=== PATIENT | male | born 1960 | race Caucasian/White ===

== ENCOUNTER → 2018-02-12 | Outpatient (CLI) | payer BC | END | disposition home or self-care (01) | LOC: KCIC CT 09:07 | DX: Z12.2 Encounter for screening for malignant neoplasm of respiratory organs (principal); J43.8 Other emphysema; E78.5 Hyperlipidemia, unspecified; I25.10 Atherosclerotic heart disease of native coronary artery without angina pectoris; R91.8 Other nonspecific abnormal finding of lung field; Z87.891 Personal history of nicotine dependence | CPT/HCPCS: G0297 ==

== ENCOUNTER → 2018-05-21 | Outpatient (CLI) | payer BC ==
[2018-03-29 06:58] VITALS: BP 149/77
[~2018-05-21] MED LIST: CHOL10003 PO; CONTRAST GIVEN. MC PRN; CYAN500T17 PO; DIAZ5TAB PO; IOHEXOL 240 MG/ML 50ML VIAL. PO ONE; IOHEXOL 300 MG/ML 100ML VIAL. IV ONE; OMEG1CAP6 PO; OXYC-323 PO
--- NOTE | 2018-05-21 11:50 | RAD ---
PQRS Compliance statement: One or more of the following individualized dose reduction techniques were utilized for this examination: 1. Automated exposure control. 2. Adjustment of the mA and/or kV according to patient size. 3. Use of iterative reconstruction technique. Indication:RENAL LESION AND BLADDER DISORDER TECHNIQUE: CT abdomen and pelvis with IV contrast with multiplanar reformats. COMPARISON: CT from 04/[address] from 06/19/2016. FINDINGS: Heart is normal in size. No pericardial or pleural effusion. Stable 4 mm nodule in the left lower lobe when compared to previous exam from 06/19/2016 likely benign given interval stability. Liver, spleen, gallbladder, pancreas, adrenals within normal limits. No nephrolithiasis or hydronephrosis. Stable 1.4 cm exophytic low attenuating lesion is seen in the upper pole of the left kidney most likely a simple or minimally corticated cyst given interval stability from 2015. No nephrolithiasis or hydronephrosis. No free pelvic fluid or ascites. No enlarged retroperitoneal or pelvic adenopathy. No bowel obstruction. Scattered colonic diverticuli. Urinary bladder demonstrates circumferential wall thickening without focal lesion or bladder stone. The prostate and seminal vesicles show no large mass. No suspicious bony lesion. IMPRESSION: 1. No nephrolithiasis or hydronephrosis. 2. Stable left upper pole renal lesion dating back to May 2016 most likely a simple or minimally complicated cyst. Electronically signed by: Carlos Pearce DO (05/21/2018 11:47 AM) [facility]
== END | disposition home or self-care (01) ==
LOC: CT 08:19
PROVIDERS: ATTEND Family Medicine
DX: N28.89 Other specified disorders of kidney and ureter (principal)
CPT/HCPCS: 74177; Q9966; Q9967

== ENCOUNTER → 2019-02-17 | Outpatient (CLI) | payer BC ==
[2018-03-29 06:58] VITALS: BP 149/77
[~2019-02-17] MED LIST changes: -CONTRAST GIVEN. MC PRN; -IOHEXOL 240 MG/ML 50ML VIAL. PO ONE; -IOHEXOL 300 MG/ML 100ML VIAL. IV ONE; -OXYC-323 PO; +OXYC1TAB15 PO
--- NOTE | 2019-02-17 15:09 | KCIC ---
CT of the chest without IV contrast. Technique: Low-dose CT study. History: Tobacco use. Lung cancer screening. Comparison: CT screening from 02/12/2018 and June 19, 2016. Lungs/pleura: A 5 mm nodule seen in the lateral right lower lobe, axial image 286/476 appears grossly similar, allowing for slice variation. There is a 3.9 mm noncalcified nodule lateral left lower lobe, axial image 330/476 appears slightly larger . Tiny subpleural opacity, best seen on axial image 358/476 is stable. Pleural-based nodularity in the left apex with biapical emphysematous but remain stable Mediastinum/hilum: No pathologically enlarged mediastinal or hilar lymph nodes are identified. Subcentimeter mediastinal lymph nodes are stable. Atheromatous coronary calcification Cardiovascular: The thoracic aortic caliber is within normal limits. Upper abdomen: Evaluation of the solid abdominal organs is very limited due to the low dose technique, lack of IV contrast, and partial nonvisualization. Bones: No suspicious lytic or blastic bone lesion is identified. IMPRESSION: Minimal interval increase in the left lower lobe nodule with stable additional nodules. Biapical emphysematous changes Lung RADS 2: Probably benign nodules. Management: Continue annual screening with low-dose CT in 12 months. PQRS Compliance Statement: One or more of the following individualized dose reduction techniques were utilized for this examination: 1. Automated exposure control 2. Adjustment of the mA and/or kV according to patient size 3. Use of iterative reconstruction technique Electronically signed by: Viviana Palacios MD (02/17/2019 3:06 PM) [facility]
== END | disposition home or self-care (01) ==
LOC: KCIC CT 11:06
PROVIDERS: ATTEND Family Medicine
DX: Z12.2 Encounter for screening for malignant neoplasm of respiratory organs (principal); J43.9 Emphysema, unspecified; R92.8 Other abnormal and inconclusive findings on diagnostic imaging of breast; I25.10 Atherosclerotic heart disease of native coronary artery without angina pectoris; F17.210 Nicotine dependence, cigarettes, uncomplicated
CPT/HCPCS: G0297

== ENCOUNTER → 2019-08-29 | Outpatient (CLI) | payer BC ==
[2018-03-29 06:58] VITALS: BP 149/77
[~2019-08-29] MED LIST changes: +IOHEXOL 240 MG/ML 50ML VIAL. PO ONE; +IOHEXOL 300 MG/ML 100ML VIAL. IV ONE
--- NOTE | 2019-08-29 15:33 | KCIC ---
CT ABD PELV W/ORAL IV CONTRAST Indication: Left upper quadrant pain, splenomegaly, pain for 5 days. Exposure: One or more of the following individualized dose reduction techniques were utilized for this examination: 1. Automated exposure control 2. Adjustment of the mA and/or kV according to patient size 3. Use of iterative reconstruction technique. Technique: Intravenous contrast was given. Oral contrast was given. Comparison: 05/04/2018. FINDINGS: Left lung base nodule measures 6 mm, unchanged since prior study as well as earlier exam from 03/29/2018. Liver appears unremarkable. Spleen unremarkable. Pancreas appears unremarkable. No evidence of adrenal mass. Kidneys demonstrate symmetric enhancement. No evidence of hydronephrosis or any mass. Small hypodense lesion at the upper pole left kidney is stable. No evidence of calcified gallstone. The aorta is mildly calcified. No evidence of aneurysm. No significant pathologic lymph node enlargement. Mild dilatation of some central small bowel loops up to 3.3 cm. No gross wall thickening. No evidence of obstruction, as contrast does reach the colon. No evidence of acute colitis. There are several small diverticula. The appendix appears normal and opacifies with contrast. Prostate gland is mildly prominent in size with some central calcifications. Prostate indents the inferior wall of the urinary bladder from which is difficult to distinguish. Mild urinary bladder wall thickening. No evidence of pneumoperitoneum. No significant ascites. Vertebral body height and alignment appear intact. Mild degenerative spondylosis. No acute fracture or aggressive bone destruction. IMPRESSION: 1. Mild dilatation of central small bowel loops, could be due to ileus or nonspecific enteritis. No evidence of small bowel obstruction. 2. Mild prostatomegaly. Circumferential urinary bladder wall thickening appears similar to the prior study, and could indicate chronic outlet obstruction. 3. Stable left lung base pulmonary nodule. 4. Stable small hypodense left renal lesion. Electronically signed by: Chico Sabillon MD (08/29/2019 3:31 PM) [email or web address]
== END | disposition home or self-care (01) ==
LOC: KCIC CT 09:21
PROVIDERS: ATTEND Family Medicine
DX: N28.89 Other specified disorders of kidney and ureter (principal); R91.1 Solitary pulmonary nodule; N40.0 Benign prostatic hyperplasia without lower urinary tract symptoms; M47.816 Spondylosis without myelopathy or radiculopathy, lumbar region; K57.30 Diverticulosis of large intestine without perforation or abscess without bleeding; R16.1 Splenomegaly, not elsewhere classified
CPT/HCPCS: 74177; Q9966; Q9967

== ENCOUNTER → 2019-09-11 | Outpatient (CLI) | payer BC ==
[2018-03-29 06:58] VITALS: BP 149/77
[~2019-09-11] MED LIST changes: -IOHEXOL 240 MG/ML 50ML VIAL. PO ONE; -IOHEXOL 300 MG/ML 100ML VIAL. IV ONE
--- NOTE | 2019-09-11 11:02 | KCIC ---
UPPER GI W/SBFT History: Left abdominal pain. Abnormal CT findings. Comparison studies: None. Technique: Upper GI study was performed utilizing double contrast upright examination and single contrast prone examination. The patient drank additional contrast was a small bowel follow-through. Multiple overhead images were obtained. Findings: Preliminary image: Nonobstructive bowel gas pattern. Minimal small bowel gas. Air and stool scattered throughout the imaged colon. Lower lumbar spondylosis. Barium swallow was performed without difficulty. Esophageal peristalsis and motility were normal. No mucosal abnormalities. Small hiatal hernia. No esophageal diverticulum. Fundus of the stomach was unremarkable. The 0 minute image demonstrates contrast opacification of the duodenum which appears normal in position. There are also multiple opacified loops of jejunum. Small bowel loops demonstrate normal caliber and morphology. The 15 minute image demonstrates that contrast has reached the right colon. Under direct fluoroscopic visualization the abdomen was palpated with a radiolucent paddle. The small bowel loops are normal in morphology. Small bowel loops are freely mobile. The terminal ileum is well visualized and is normal. Fluoroscopic time: 3 minutes 33 seconds Fluoroscopic images: 33 IMPRESSION: 1. Small hiatal hernia. 2. Unremarkable small bowel follow-through. Contrast opacified the colon at 15 minutes. Electronically signed by: Eric Franco DO (09/11/2019 10:59 AM) [id number]
== END | disposition home or self-care (01) ==
LOC: KCIC 08:41
PROVIDERS: ATTEND Internal Medicine Gastroenterology
DX: K44.9 Diaphragmatic hernia without obstruction or gangrene (principal); R10.30 Lower abdominal pain, unspecified
CPT/HCPCS: 74245

== ENCOUNTER → 2020-03-15 | Outpatient (CLI) | payer BC ==
[2018-03-29 06:58] VITALS: BP 149/77
--- NOTE | 2020-03-15 17:15 | KCIC ---
ELBOW LEFT 2V History: Reason: LEFT ELBOW PAIN / Spl. Instructions: Lt anteriolateral elbow pain radiating to forearm with rotation. NKI. / History: Technique: 2 views left elbow. Comparison: None. Findings: Normal alignment. No fracture. No significant elbow joint effusion. Soft tissues unremarkable. Impression: 1. No acute osseous abnormality. Electronically signed by: Eric Franco DO (03/15/2020 5:12 PM) [facility]
== END ==
LOC: KCIC 13:09
PROVIDERS: ATTEND Family Medicine
DX: M25.522 Pain in left elbow (principal)
CPT/HCPCS: 73070

== ENCOUNTER → 2021-05-16 | Outpatient (CLI) | payer OTHER ==
[2018-03-29 06:58] VITALS: BP 149/77
--- NOTE | 2021-05-16 09:40 | KCIC ---
EXAM: Chest, 2 views. HISTORY: Abnormal chest sounds. COMPARISON: None. FINDINGS: 2 views of the chest are obtained. There is no infiltrate, pleural effusion or pneumothorax . The heart is normal in size. There is hyperinflation likely due to emphysema. There are healed left rib fractures. IMPRESSION: No acute pulmonary finding. Electronically signed by: April Castro MD (05/16/2021 9:37 AM) [id number]
== END ==
LOC: KCIC 09:18
PROVIDERS: ATTEND Internal Medicine
DX: R09.89 Other specified symptoms and signs involving the circulatory and respiratory systems (principal); Z87.81 Personal history of (healed) traumatic fracture
CPT/HCPCS: 71046

== ENCOUNTER → 2021-11-22 | Outpatient (CLI) | payer OTHER ==
[2018-03-29 06:58] VITALS: BP 149/77
--- NOTE | 2021-11-22 15:16 | KCIC ---
EXAM: XR LUMBAR SPINE 4+V 11/22/2021 12:25 PM CLINICAL INDICATION: Lower back pain, left radiculopathy COMPARISON: None TECHNIQUE: AP, right and left oblique, lateral, and coned-down lateral views of the lumbar spine FINDINGS: There are 5 nonrib-bearing lumbar vertebral bodies. No acute fracture. Alignment is normal . There is mild disc space narrowing with small anterior osteophytes throughout the lumbar spine. No significant facet arthrosis. IMPRESSION: Mild degenerative disc disease. Electronically signed by: Dennise Villa MD (11/22/2021 3:13 PM) [id number]
--- NOTE | 2021-11-22 15:56 | KCIC ---
Bilateral Duplex Carotid Ultrasound Indication: Reason: BRUIT OF LT CCA, HX SMOKING X30 YEARS / Spl. Instructions: / History: Procedure: Two dimensional, duplex and color-flow images and spectral analysis are obtained of the ca rotid arteries bilaterally. Vertebral arteries are also imaged. Findings: Right Carotid: The 2 D images demonstrate moderate plaquing with no evidence of significant narrowin g. The color images are normal without turbulence or jet effect. On the right ICA peak systolic [place] is 88 cm/sec. I The ICA/CCA ratio is 0.8 . Left Carotid: The 2 D images demonstrate moderate plaquing with no evidence of significant narrowing . The color images are normal without turbulence or jet effect. On the left ICA peak systolic velocit y is 151 cm/sec. The ICA/CCA ratio is 1.8 . Vertebral Arteries: The right vertebral artery is normal with normal direction of flow. The left orestes tebral artery is normal with normal direction of flow. Impression: 1. Significant atherosclerotic disease with moderate diffuse plaque throughout the carotid arteries b ilaterally. 2. Approximately 50 percent stenosis of the mid internal carotid artery on the left. End of impression PQRS Compliance Statement - Stenosis calculations for CT, MR and conventional angiography are based upon measurement of the distal ICA diameter in accordance with the NASCET methodology. Stenosis calc ulations for carotid ultrasound studies are derived from validated velocity criteria which are known to correlate with the NASCET methodology. Electronically signed by: Stu Erickson III, MD (11/22/2021 3:54 PM) [facility]
--- NOTE | 2021-11-22 15:59 | KCIC ---
Renal ultrasound complete History: Reason: FLANK PAIN, CHRONIC KIDNEY DISEASE STAGE 3a / Spl. Instructions: / History: Sonographic examination of the kidneys was performed and multiple static images were obtained. Right kidney: The right kidney is seen with no hydronephrosis and measures 10.4 cm in length. Left kidney: The left kidney is seen with no hydronephrosis and measures 10.3 cm in length. There is a 1.4 simila r cyst. Urinary bladder: The urinary bladder is partially collapsed but appears normal. The prostate is lobulated and mildly enlarged measuring 3.4 x 4.0 x 3.9 cm. Impression: 1. Enlarged prostate. 2. No hydronephrosis. Electronically signed by: Stu Erickson III, MD (11/22/2021 3:56 PM) [facility]
--- NOTE | 2021-11-22 16:31 | KCIC ---
EXAM: CT CHEST WITHOUT CONTRAST (LDCT LUNG CANCER SCREENING). HISTORY: Risk factors for pulmonary malignancy. Nicotine dependence. Smoker for 40 years, one pack pe r day TECHNIQUE: CT of the chest was performed without intravenous contrast using a low-dose lung screening protocol. Findings analysis is based on ACR Lung-RADS v1.1. *One or more of the following individual ized dose reduction techniques were utilized for this examination: 1. Automated exposure control. 2. Adjustment of the mA and/or kV according to patient size. 3. Use of iterative reconstruction technique. COMPARISON: CT chest 02/17/2019 FINDINGS: Thyroid gland is normal in appearance. There are no pathologically enlarged axillary, mediastinal or hilar lymph nodes. Heart size is within normal limits. Thoracic aorta is normal in course and caliber. There is no significant pericardial e ffusion. Thoracic esophagus is normal in appearance. Anterior chest wall appears intact. Three-vessel coronary artery vascular callus cages are present. Calcified atheromatous plaque involving the thora cic aorta. There is a stable 6 mm solid noncalcified pulmonary nodule in the posterior right lower lobe (series 6, image 207). Stable 3 mm solid noncalcified pulmonary nodule identified along the minor fissure (se kaia 6, image 178). There is a stable 6 mm solid noncalcified pulmonary nodule lateral left lower lob e (series 6, image 239). The left lung apex, there is a spiculated nodular opacity measuring 1.7 x 1. 4 x 1.4 cm (series 6, image 43). Findings are more confluent is identified from 05/20/2019. There are no pleural effusions, pulmonary vascular congestion or pneumothorax. Lungs are clear without focal a irspace consolidation. Central airways are clear. Visualized portions of the upper abdomen are normal in appearance within limitations of a noncontrast examination. No suspicious osseous abnormality. No paraspinal soft tissue mass. Healed posterior left ninth rib fr acture noted. IMPRESSION/RECOMMENDATION: 1. ACR Lung-RADS category: 4A. Left apical 1.7 x 1.4 x 1.4 cm degraded nodular opacity appears more c onfluent as compared to 02/17/2019. 2. PET/CT versus 3-month follow-up CT is recommended to further evaluate for malignancy. Electronically signed by: Nitza Novak MD (11/22/2021 4:28 PM) [facility]
== END ==
LOC: KCIC US 12:20
PROVIDERS: ATTEND Family Medicine
DX: R91.8 Other nonspecific abnormal finding of lung field (principal); I25.10 Atherosclerotic heart disease of native coronary artery without angina pectoris; I70.0 Atherosclerosis of aorta; I65.23 Occlusion and stenosis of bilateral carotid arteries; N40.0 Benign prostatic hyperplasia without lower urinary tract symptoms; N28.1 Cyst of kidney, acquired; M51.16 Intervertebral disc disorders with radiculopathy, lumbar region; M48.061 Spinal stenosis, lumbar region without neurogenic claudication; M25.78 Osteophyte, vertebrae; F17.210 Nicotine dependence, cigarettes, uncomplicated
CPT/HCPCS: 71271; 72110; 76770; 93880